=== PATIENT | male | born 1995 | race Native Hawaiian/Other Pacific Islander ===

== ENCOUNTER 2017-08-06 15:52 | Emergency (ER) | payer SELFPAY ==
[2017-08-06 15:54] VITALS: BP 144/84; PULSE 86; RESP 12; TEMP 97.7; O2SAT 99
[2017-08-06] MEDS ORDERED: PENI500T PO (17:07)
[2017-08-06] MEDS ORDERED: IBUP1TAB7 PO (17:07)
--- NOTE | 2017-08-06 17:08 | PD ---
HPI Chief Complaint: Oral / Dental Pain or Problem Time Seen by Provider: 16:57 Travel History International Travel<30 days: No Contact w/Intl Traveler<30days: No Traveled to known affect area: No History of Present Illness HPI 22-year-old male presents to the emergency department for evaluation of left upper dental pain that started 2 days ago. Patient denies any fevers or chills. Current pain is 7/10. No other symptoms or complaints. Mild severity. No exacerbating or alleviating factors. PFSH Past Medical History ?: Not Social History Alcohol Use: Yes Tobacco Use: No Substance Use: No Allergies-Medications (Allergen,Severity, Reaction): Coded Allergies: No Known Allergies (Verified Allergy, Unknown, 08/06/17) Review of Systems Except as stated in HPI: all other systems reviewed are Neg Physical Exam Narrative GENERAL: Well-nourished, well-developed male patient, ambulatory. Afebrile. SKIN: Focused skin assessment warm/dry. HEAD: Normocephalic. Atraumatic. ENT: Mucosa pink and moist. No erythema or exudates. No uvular edema. No uvular , palatal, or tonsillar deviation. Airway patent. Nasal turbinates appear normal without nasal blood, purulent drainage or septal hematoma. Bilateral tympanic membranes are clear without erythema or perforation. Patient has tenderness over tooth #13. This tooth is broken on exam. No gingival fluctuance or evidence of abscess. EYES: No scleral icterus. No injection or drainage. NECK: Supple, trachea midline. No JVD or lymphadenopathy. CARDIOVASCULAR: Regular rate and rhythm without murmurs, gallops, or rubs. RESPIRATORY: Breath sounds equal bilaterally. No accessory muscle use. Lungs sounds are clear to auscultation GASTROINTESTINAL: Abdomen soft, non-tender, nondistended. MUSCULOSKELETAL: No cyanosis, or edema. BACK: Nontender without obvious deformity. No CVA tenderness. Data Data Last Documented VS Vital Signs Date Time Temp Pulse Resp B/P (MAP) Pulse Ox O2 Delivery O2 Flow Rate FiO2 08/06/17 15:54 97.7 86 12 144/84 (104) 99 MDM Medical Decision Making Medical Screen Exam Complete: Yes Emergency Medical Condition: Yes Medical Record Reviewed: Yes Differential Diagnosis Toothache versus abscess versus gingivitis versus broken tooth Narrative Course 22 year old male presents to the emergency department for evaluation of dental pain. Patient will be discharged with a prescription for ibuprofen and pen VK. He is encouraged to follow-up with a dentist. The patient was discharged in stable condition with instructions, including return instructions and follow up instructions. Diagnosis Primary Impression: Toothache Referrals: Dentist call for appointment Patient Instructions: General Instructions, Toothache (ED) Additional Instructions: Take Ibuprofen as directed as needed for pain. Take PenVK as directed until gone. Follow up with a dentist. Return to the emergency department for any acute, worsening of symptoms. Med/Other Pt SpecificInfo: Prescription(s) given Scripts Penicillin V Potassium (Penicillin V Potassium) 500 Mg Tab 500 MG PO Q8H for Infection for 10 Days, #30 TAB 0 Refills Prov: Ginette Humphries 08/06/17 Ibuprofen (Ibuprofen) 800 Mg Tab 800 MG PO TID Y for PAIN SCALE 1 TO 10, #21 TAB 0 Refills Prov: Ginette Humphries 08/06/17 Disposition: 01 DISCHARGE HOME Condition: Stable Ginette Humphries Aug 06, 2017 17:08
== END 2017-08-06 18:00 | disposition home or self-care (01) ==
LOC: NEPD 15:52
DX: K08.89 Other specified disorders of teeth and supporting structures (principal)
CPT/HCPCS: 99283